=== PATIENT | female | born 1985 | race Hispanic/Latino ===

== ENCOUNTER 2019-07-06 13:02 | Emergency (ER) | payer SELFPAY ==
[2019-07-06 13:11] VITALS: BP 139/87
--- NOTE | 2019-07-06 13:14 | Event Note ---
ED Screening Note Date of service: 07/06/19 Time: 13:09 ED Screening Note: 34 y/o female c/o " My asthma". Has been going on for 3 days. Using Qvar and albuterol. SOB and chest tightness. No wheezing. LMP on BC. No smoke. This initial assessment/diagnostic orders/clinical plan/treatment(s) is/are subject to change based on patients health status, clinical progression and re- assessment by fellow clinical providers in the ED. Further treatment and workup at subsequent clinical providers discretion. Patient/guardian urged not to elope from the ED as their condition may be serious if not clinically assessed and managed. Initial orders include:
--- NOTE | 2019-07-06 14:06 | XRay Report ---
CHEST 2 VIEWS INDICATION / CLINICAL INFORMATION: Chest tightness and shortness of breath. COMPARISON: None available. FINDINGS: SUPPORT DEVICES: None. HEART / MEDIASTINUM: No significant abnormality. LUNGS / PLEURA: No significant pulmonary or pleural abnormality. No pneumothorax. ADDITIONAL FINDINGS: No significant additional findings. IMPRESSION: 1. No acute findings. Signer Name: Darío Corado MD Signed: 07/06/2019 2:01 PM Workstation Name: [id number]
--- NOTE | 2019-07-06 15:06 | Emergency Department Report ---
ED Shortness of Breath HPI - General Chief Complaint: Dyspnea/Respdistress Stated Complaint: TIGHTNESS OF CHEST/SOB Time Seen by Provider: 07/06/19 13:09 Source: patient Mode of arrival: Ambulatory Limitations: No Limitations - History of Present Illness Initial Comments: Patient is 34 years old female with history of asthma. Patient stated that she's been having some shortness of breath and wheezing for the last week. Patient stated that she was using her son breathing machine and he is liquid steroid. Patient denied any fever or chills. No nausea or vomiting. MD Complaint: shortness of breath - Related Data Home Medications Medication Instructions Recorded Confirmed Last Taken Albuterol Sulfate [Ventolin HFA] 2 puff IH Q6H PRN 09/25/16 09/25/16 Unknown Budesoni/Formotero 160-4.5(Nf) 2 puff IH Q12H 09/25/16 09/25/16 09/25/16 [Symbicort 160-4.5 (Nf)] Ferrous Sulfate [Feosol] 325 mg PO QDAY 09/25/16 09/25/16 Unknown valACYclovir [Valtrex] 500 mg PO QDAY 09/25/16 09/25/16 Unknown Allergies Allergy/AdvReac Type Severity Reaction Status Date / Time nitrofurantoin Allergy Rash Verified 08/11/16 13:06 [From Macrobid] nitrofurantoin Allergy Rash Verified 08/11/16 13:06 macrocrystalline [From Macrobid] ED Review of Systems ROS: Stated complaint: TIGHTNESS OF CHEST/SOB Other details as noted in HPI Comment: All other systems reviewed and negative Constitutional: denies: chills, fever Respiratory: shortness of breath, SOB with exertion, SOB at rest, wheezing. denies: cough, orthopnea Cardiovascular: denies: chest pain, palpitations, dyspnea on exertion Gastrointestinal: denies: abdominal pain, nausea, vomiting ED Past Medical Hx - Past Medical History Previous Medical History?: Yes Hx Hypertension: No Hx Congestive Heart Failure: No Hx Diabetes: No Hx Deep Vein Thrombosis: No Hx Renal Disease: No Hx Sickle Cell Disease: No Hx Seizures: No Hx Asthma: Yes (albuteral, symbicort daily) Hx COPD: No Hx HIV: No - Social History Smoking Status: Never Smoker Substance Use Type: None - Medications Home Medications: Home Medications Medication Instructions Recorded Confirmed Last Taken Type Albuterol Sulfate [Ventolin HFA] 2 puff IH Q6H PRN 09/25/16 09/25/16 Unknown History Budesoni/Formotero 160-4.5(Nf) 2 puff IH Q12H 09/25/16 09/25/16 09/25/16 History [Symbicort 160-4.5 (Nf)] Ferrous Sulfate [Feosol] 325 mg PO QDAY 09/25/16 09/25/16 Unknown History valACYclovir [Valtrex] 500 mg PO QDAY 09/25/16 09/25/16 Unknown History ED Physical Exam - General Limitations: No Limitations General appearance: alert, in no apparent distress - Head Head exam: Present: atraumatic, normocephalic, normal inspection - Eye Eye exam: Present: normal appearance, PERRL - ENT ENT exam: Present: normal exam, normal orophraynx, mucous membranes moist - Neck Neck exam: Present: normal inspection, full ROM. Absent: tenderness, meningismus, lymphadenopathy, thyromegaly - Respiratory Respiratory exam: Present: normal lung sounds bilaterally. Absent: respiratory distress, wheezes, rales, rhonchi, stridor, chest wall tenderness, accessory muscle use, decreased breath sounds, prolonged expiratory - Cardiovascular Cardiovascular Exam: Present: regular rate, normal rhythm, normal heart sounds - GI/Abdominal GI/Abdominal exam: Present: soft. Absent: distended, tenderness, guarding, rebound, rigid - Extremities Exam Extremities exam: Present: normal inspection. Absent: pedal edema - Back Exam Back exam: Present: normal inspection, full ROM. Absent: tenderness, CVA tenderness (R) - Neurological Exam Neurological exam: Present: alert, oriented X3, CN II-XII intact ED Course Vital Signs 07/06/19 13:09 Temperature 98.3 F Pulse Rate 76 Respiratory 18 Rate Blood Pressure 139/87 O2 Sat by Pulse 97 Oximetry ED Medical Decision Making - Radiology Data Radiology results: report reviewed Chest x-ray is unremarkable. Critical care attestation.: If time is entered above; I have spent that time in minutes in the direct care of this critically ill patient, excluding procedure time. ED Disposition Clinical Impression: Asthma exacerbation attacks Disposition: TO HOME OR SELFCARE Is pt being admited?: No Condition: Stable Instructions: Asthma (ED) Referrals: PRIMARY CARE, [Primary Care Provider] - 3-5 Days
== END 2019-07-06 15:53 | disposition home or self-care (01) ==
LOC: ED 13:02
DX: J45.901 Unspecified asthma with (acute) exacerbation (principal); Z88.8 Allergy status to other drugs, medicaments and biological substances; Z79.899 Other long term (current) drug therapy
CPT/HCPCS: 71046

== ENCOUNTER 2019-11-09 18:28 | Emergency (ER) | payer OTHER ==
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
[2019-11-09 22:59] LABS: Basophils # (Auto) 0.1 K/mm3 (0.0-0.1); Basophils % (Auto) 0.6 % (0.0-1.8); Eosinophils # (Auto) 0.6 K/mm3 (0.0-0.4); Eosinophils % (Auto) 4.2 % (0.0-4.3); Hematocrit 38.6 % (30.3-42.9); Hemoglobin 12.7 gm/dl (10.1-14.3); Lymphocytes # (Auto) 3.4 K/mm3 (1.2-5.4); Lymphocytes % (Auto) 23.9 % (13.4-35.0); Mean Corpuscular HGB Conc 33 % (30-34); Mean Corpuscular Volume 83 fl (79-97); Monocytes # (Auto) 0.9 K/mm3 (0.0-0.8); Monocytes % (Auto) 6.3 % (0.0-7.3); Platelet Count 321 K/mm3 (140-440); Red Blood Count 4.67 M/mm3 (3.65-5.03); Red Cell Distribution Width 14.4 % (13.2-15.2)
[2019-11-09 23:11] LABS: Bacteria,Urine 1+ /HPF (Negative); Bilirubin,Urine NEG (Negative); Blood,Urine MOD (Negative); Color,Urine Yellow (Yellow); Mucus,Urine 2+ /HPF; Protein,Urine <15 mg/dL mg/dL (Negative); Urobilinogen,Urine < 2.0 mg/dL (<2.0)
[2019-11-09 23:19] LABS: Alanine Aminotransferase 17 units/L (7-56); Albumin 4.2 g/dL (3.9-5); BUN/Creatinine Ratio 17; Blood Urea Nitrogen 12 mg/dL (7-17); Calcium 9.5 mg/dL (8.4-10.2); Hemolysis Index 5
[2019-11-09] MEDS ORDERED: KETOROLAC 30 MG/1 ML INJ IM ONE (23:55)
[2019-11-10] MEDS ORDERED: DEXAMETHASONE 4 MG TAB PO ONE (00:14)
[2019-11-10 02:09] VITALS: BP 138/87
== END 2019-11-10 00:38 | disposition home or self-care (01) ==
LOC: ED 18:28
DX: N39.0 Urinary tract infection, site not specified (principal); M54.41 Lumbago with sciatica, right side; M54.42 Lumbago with sciatica, left side; Z79.899 Other long term (current) drug therapy; Z88.1 Allergy status to other antibiotic agents; Z88.8 Allergy status to other drugs, medicaments and biological substances; J45.909 Unspecified asthma, uncomplicated; V49.49XA Driver injured in collision with other motor vehicles in traffic accident, initial encounter; Y93.89 Activity, other specified; Y92.410 Unspecified street and highway as the place of occurrence of the external cause; Y99.8 Other external cause status
CPT/HCPCS: 36415; 72100; 80053; 81001; 83690; 84703; 85025; 87086; 96372; 99284; J1885; J8540; 87076; 87186

== ENCOUNTER 2020-02-01 07:08 | Emergency (ER) | payer SELFPAY ==
[2020-02-01 08:41] LABS: HCG Qualitative,Urine Negative (Negative)
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
[2020-02-01 09:18] LABS: Bilirubin,Urine NEG (Negative); Blood,Urine SM (Negative); Color,Urine Straw (Yellow); Protein,Urine <15 mg/dL mg/dL (Negative); Urobilinogen,Urine < 2.0 mg/dL (<2.0); WBC,Urine < 1.0 /HPF (0.0-6.0)
[2020-02-01] MEDS ORDERED: HYDROcodone/ACETAMINOPHEN 5-325 MG TAB PO ONE (09:38)
[2020-02-01] MEDS ORDERED: predniSONE 10 MG TAB PO ONE (09:38)
[2020-02-01] MEDS ORDERED: dexAMETHasone 4 MG/ML VIAL IM ONE (09:38)
[2020-02-01 11:03] VITALS: BP 133/90
== END 2020-02-01 11:00 | disposition home or self-care (01) ==
LOC: ED 07:08
DX: M54.40 Lumbago with sciatica, unspecified side (principal); R10.9 Unspecified abdominal pain; J45.909 Unspecified asthma, uncomplicated; Z79.899 Other long term (current) drug therapy; Z88.1 Allergy status to other antibiotic agents
CPT/HCPCS: 81001; 81025; 96372; 99283; J1100; J7512

== ENCOUNTER 2022-01-22 15:04 | Emergency (ER) | payer MEDICAID ==
[2022-01-22 17:54] VITALS: BP 167/81
== END 2022-01-22 18:45 | disposition left against medical advice (07) ==
LOC: ED 15:04
DX: O20.8 Other hemorrhage in early pregnancy (principal); Z3A.08 8 weeks gestation of pregnancy; Z53.21 Procedure and treatment not carried out due to patient leaving prior to being seen by health care provider

== ENCOUNTER 2022-05-18 10:18 | Outpatient (CLI) | payer MEDICAID ==
[2022-05-18 11:20] VITALS: BP 108/59
[2022-05-18] MEDS ORDERED: LACTATED RINGERS 500 ML IV ONE (11:36)
[2022-05-18 14:33] LABS: Bilirubin,Urine NEG (Negative); Blood,Urine NEG (Negative); Color,Urine Yellow (Yellow); Protein,Urine <15 mg/dL mg/dL (Negative); Urobilinogen,Urine < 2.0 mg/dL (<2.0)
[2022-05-18 14:34] LABS: Mucus,Urine FEW /HPF; RBC,Urine < 1.0 /HPF (0.0-6.0); WBC,Urine < 1.0 /HPF (0.0-6.0)
--- NOTE | 2022-05-18 17:40 | Ultrasound Report ---
OB ultrasound INDICATION: Lower abdominal pain FINDINGS: BPD measures 24 weeks 6 days. Head circumference 24 weeks 4 days. Abdominal circumference 2 5 weeks 2 days and femoral length 22 weeks 1 day. Estimated weight 6 61 g. Ultrasound age 24 weeks 2 days. ROMAN measures 4.0 cm. Cephalic presentation placenta grade 0. heart rate 155. Cervix lengt h 3.42 cm. IMPRESSION: Live intrauterine with ultrasound age 24 weeks 2 days and clinical age 23 weeks 5 days. Signer Name: Brett Camara MD Signed: 05/18/2022 5:36 PM Workstation Name: [id number]
== END 2022-05-18 18:02 | disposition home or self-care (01) ==
LOC: APU 10:18 → TRG 10:18
PROVIDERS: ATTEND Obstetrics & Gynecology
DX: O09.892 Supervision of other high risk pregnancies, second trimester (principal); Z3A.26 26 weeks gestation of pregnancy
CPT/HCPCS: 59025; 76805; 81001

== ENCOUNTER 2022-07-25 08:18 | Outpatient (CLI) | payer MEDICAID ==
--- NOTE | 2022-07-25 13:10 | Ultrasound Report ---
LIMITED OBSTETRICAL ULTRASOUND INDICATION: CERVICAL LENGTH COMPARISON: 05/18/2022 FINDINGS: Single intrauterine is again seen in cephalic position. Placenta is not visualize d but is free of the internal cervical os. Cervical length is 3.4 cm with no obvious internal os wide braeden seen. Cardiac activity was documented at 126 bpm. Dating and anatomic evaluation were not perfor med in this limited study. Signer Name: Jose Gil MD Signed: 07/25/2022 1:05 PM Workstation Name: [id number]
[2022-07-25 13:41] LABS: Hemoglobin 9.4 gm/dl (10.1-14.3); Mean Corpuscular HGB Conc 32 % (30-34); Mean Corpuscular Volume 81 fl (79-97); Platelet Count 269 K/mm3 (140-440); Red Blood Count 3.58 M/mm3 (3.65-5.03); Red Cell Distribution Width 15.4 % (13.2-15.2)
[2022-07-25 14:03] LABS: Alanine Aminotransferase 9 units/L (7-56); Uric Acid 4.6 mg/dL (3.5-7.6)
[2022-07-25 14:04] LABS: Bacteria,Urine 1+ /HPF (Negative); Mucus,Urine FEW /HPF
[2022-07-25 14:28] LABS: Color,Urine Yellow (Yellow)
[2022-07-25 15:05] VITALS: BP 111/59
== END 2022-07-25 15:43 | disposition home or self-care (01) ==
LOC: TRG 08:18 → APU 08:19 → TRG 15:43
PROVIDERS: ATTEND Obstetrics & Gynecology
DX: O26.893 Other specified pregnancy related conditions, third trimester (principal); M54.50 Low back pain, unspecified; R11.0 Nausea; Z3A.33 33 weeks gestation of pregnancy
CPT/HCPCS: 36415; 76815; 81001; 82565; 83615; 84450; 84460; 84550; 85027; 87086

== ENCOUNTER 2022-08-14 11:00 | Outpatient (CLI) | payer OTHER, MEDICAID ==
[2022-08-14 11:26] VITALS: BP 137/79
== END 2022-08-14 12:43 | disposition home or self-care (01) ==
LOC: TRG 11:00 → APU 11:01 → TRG 12:43
PROVIDERS: ATTEND Obstetrics & Gynecology Gynecology
DX: Z34.93 Encounter for supervision of normal pregnancy, unspecified, third trimester (principal); Z3A.36 36 weeks gestation of pregnancy
CPT/HCPCS: 59025

== ENCOUNTER 2022-08-25 07:49 | Inpatient (IN) | payer MEDICAID ==
[2022-08-25] MEDS ORDERED: OXYTOCIN DRIP 30,000 MILLIUNITS/500 ML BAG IV ONE (11:51)
[2022-08-25] MEDS ORDERED: LACTATED RINGERS 1,000 ML IV SCH ×2 (12:00→12:15)
[2022-08-25] MEDS ORDERED: BUTORPHANOL 2 MG/1 ML INJ IV PRN (12:02)
[2022-08-25] MEDS ORDERED: NALOXONE 0.4 MG/1 ML INJ IV PRN ×2 (12:02→18:01)
[2022-08-25] MEDS ORDERED: ONDANSETRON 4 MG/2 ML INJ IV PRN (12:02)
[2022-08-25] MEDS ORDERED: OXYTOCIN 10 UNIT/1 ML INJ IM PRN (12:02)
[2022-08-25] MEDS ORDERED: WITCH HAZEL/ GLYCERIN PAD TP PRN (12:06)
--- NOTE | 2022-08-25 12:40 | History and Physical Report ---
History of Present Illness Date of examination: 08/25/22 Date of admission: 08/25/22 07:49 Chief complaint: Presents for scheduled induction of labor per [facility] recommendation for CHTN, AMA, and Maternal Obesity History of present illness: Early entry to care, co-managed with [facility]. course complicated by CHTN, AMA, Maternal obesity, a UTI (treated with Amoxicillin); and a hx of HSV II (taking Valacyclovir suppression). Past History Past Medical History: asthma, hypertension Past Surgical History: no surgical history DINING HOST History: abnormal PAP smear, herpes Family/Genetic History: cancer Social history: no significant social history, single - Obstetrical History Expected Date of Delivery: 09/07/22 Actual Gestation: 38 Week(s) 1 Day(s) : 7 Para: 5 Hx # Term Pregnancies: 5 Spontaneous Abortions: 1 Number of Living Children: 5 #1 Infant Gender: Female year: 2,001 Birthweight: 2.948 kg Method of Delivery: Vaginal Gestational age at delivery: 40 #2 Gender: Male year: 2,[birth year] Birthweight: 3.175 kg Method of Delivery: Vaginal Gestational age at delivery: 40 #3 Infant Gender: Male year: 2,009 Birthweight: 3.175 kg Method of Delivery: Vaginal Gestational age at delivery: 40 #4 Infant Gender: Male year: 2,012 Birthweight: 4.423 kg Method of Delivery: Vaginal Gestational age at delivery: 41 #5 Infant Gender: Female year: 2,016 Birthweight: 3.827 kg Method of Delivery: Vaginal Gestational age at delivery: 38 Medications and Allergies Allergies Allergy/AdvReac Type Severity Reaction Status Date / Time nitrofurantoin Allergy Rash Verified 08/11/16 13:06 [From Macrobid] nitrofurantoin Allergy Rash Verified 08/11/16 13:06 macrocrystalline [From Macrobid] Home Medications Medication Instructions Recorded Confirmed Last Taken Type Albuterol Sulfate [Ventolin HFA] 2 puff IH Q6H PRN 09/25/16 09/25/16 Unknown History Budesoni/Formotero 160-4.5(Nf) 2 puff IH Q12H 09/25/16 09/25/16 09/25/16 History [Symbicort 160-4.5 (Nf)] Ferrous Sulfate [Feosol] 325 mg PO QDAY 09/25/16 09/25/16 Unknown History valACYclovir [Valtrex] 500 mg PO QDAY 09/25/16 09/25/16 Unknown History Cyclobenzaprine [Flexeril] 10 mg PO TID PRN #10 tablet 02/01/20 Unknown Rx Ibuprofen [Motrin] 800 mg PO Q8HR PRN #30 tablet 02/01/20 Unknown Rx predniSONE [Deltasone] 20 mg PO DAILY #5 tablet 02/01/20 Unknown Rx Active Meds: Active Medications Butorphanol Tartrate (Butorphanol 2 Mg/1 Ml Inj) 2 mg IV Q2H PRN PRN Reason: Pain , Severe (7-10) Ephedrine Sulfate (Ephedrine Sulfate 50 Mg/1 Ml Inj) 10 mg IV Q2M PRN PRN Reason: Hypotension Lactated Ringer's (Lactated Ringers) 1,000 mls @ 125 mls/hr IV DIRECT EUSEBIO Oxytocin/Sodium Chloride (Pitocin/Ns 30 Unit/500ml) 30,000 milliunits in 500 mls @ 2 mls/hr IV DIRECT ONE; Protocol Stop: 09/04/22 21:50 Oxytocin/Sodium Chloride (Pitocin/Ns 30 Unit/500ml) 30 units in 500 mls @ 2 mls/hr IV TITR EUSEBIO; Protocol Ampicillin Sodium (Ampicillin/Ns 1 Gm/50 Ml) 1 gm in 50 mls @ 100 mls/hr IV Q4H EUSEBIO; Protocol Ampicillin Sodium (Ampicillin/Ns 2 Gm/100 Ml) 2 gm in 100 mls @ 100 mls/hr IV ONCE ONE; Protocol Stop: 08/25/22 13:59 Lidocaine (Lidocaine (2%) 20 Mg/1 Ml Vial 20 Ml Mdv) 20 ml INFILTRATI ONCE ONE Stop: 08/25/22 13:01 Mineral Oil (Mineral Oil 30 Ml Oral Liqd) 30 ml PO QHS PRN PRN Reason: Constipation Misoprostol (Misoprostol 200 Mcg Tab) 800 mcg AR ONCE PRN PRN Reason: Uterine Bleeding Misoprostol (Misoprostol 25 Mcg Tab) 25 mcg VG ONCE ONE Stop: 08/25/22 13:01 Last Admin: 08/25/22 12:33 Dose: 25 mcg Naloxone HCl (Naloxone 0.4 Mg/1 Ml Inj) 0.1 mg IV Q2MIN PRN PRN Reason: Res Rate </= 8 or 02 SAT < 92% Ondansetron HCl (Ondansetron 4 Mg/2 Ml Inj) 4 mg IV Q8H PRN PRN Reason: Nausea And Vomiting Oxytocin (Oxytocin 10 Unit/1 Ml Inj) 10 unit IM ONCE PRN PRN Reason: Uterine Bleeding Terbutaline Sulfate (Terbutaline 1 Mg/1 Ml Inj) 0.25 mg SUB-Q ONCE PRN PRN Reason: Hyperstimulation/Hypertonicity Witch Karlee/Glycerin (Witch Karlee/ Glycerin Pad) 1 each TP PRN PRN PRN Reason: Hemorrhoids Review of Systems All systems: negative - Vital Signs Vital signs: Vital Signs Pulse Ox 77 L 08/25/22 08:48 Temp Pulse Resp BP Pulse Ox 98.2 F 89 119/67 98 08/25/22 11:46 08/25/22 12:31 08/25/22 11:07 08/25/22 12:31 - Physical Exam Breasts: Positive: normal Cardiovascular: Regular rate Lungs: Positive: Clear to auscultation, Normal air movement Abdomen: Positive: normal appearance, soft, normal bowel sounds Genitourinary (Female): Positive: normal external genitalia, normal perenium Vagina: Positive: normal moisture Uterus: Positive: enlarged Anus/Rectum: Positive: normal perianal skin Extremities: Positive: normal - Obstetrical FHR: category 1 Uterine Contraction Monitor Mode: External Cervical Dilatation: 3 (Vtx; Intact) Cervical Effacement Percentage: 40 station: -3 Uterine Contraction Pattern: Irregular Uterine Tone Measurement Phase: Resting Uterine Contraction Intensity: Mild Results All other labs normal. Assessment and Plan A: IUP @ 38 1/7 Weeks Category I Tracing Chronic Hypertension Advanced Maternal Age Maternal Obesity Asthma GBS Positive P: Admit to L&D Per Routine Orders Cytotec 25mcg Intravaginally x 1 dose GBS Prophylaxis
[2022-08-25] MEDS ORDERED: ePHEDrine SULFATE 50 MG/1 ML INJ IV PRN ×2 (13:00→18:01)
[2022-08-25] MEDS ORDERED: MINERAL OIL 30 ML ORAL LIQD PO PRN (13:00)
[2022-08-25] MEDS ORDERED: AMPICILLIN/NS 2 GM/100 ML 2 GM/100 ML BAG IV ONE (13:00)
[2022-08-25] MEDS ORDERED: LIDOCAINE (2%) 20 MG/1 ML VIAL 20 ML MDV INFILTRATI ONE (13:00)
[2022-08-25] MEDS ORDERED: TERBUTALINE 1 MG/1 ML INJ SUB-Q PRN (13:00)
[2022-08-25] MEDS ORDERED: miSOPROStol 200 MCG TAB PR PRN (13:00)
[2022-08-25] MEDS ORDERED: OXYTOCIN DRIP 30 UNITS/500 ML BAG IV SCH (13:00)
[2022-08-25] MEDS ORDERED: miSOPROStol 25 MCG TAB VG ONE (13:00)
[2022-08-25 13:02] LABS: Hematocrit 28.1 % (30.3-42.9); Hemoglobin 9.1 gm/dl (10.1-14.3); Mean Corpuscular HGB Conc 32 % (30-34); Mean Corpuscular Volume 79 fl (79-97); Platelet Count 231 K/mm3 (140-440); Red Blood Count 3.55 M/mm3 (3.65-5.03); Red Cell Distribution Width 15.4 % (13.2-15.2)
--- NOTE | 2022-08-25 16:39 | Progress Note ---
Assessment and Plan A: IUP @ 38 1/7 Weeks Category I Tracing Chronic Hypertension Advanced Maternal Age Maternal Obesity Asthma GBS Positive P: AROM Continue GBS Prophylaxis Subjective - Subjective Date of service: 08/25/22 Interval history: Early entry to care, co-managed with [facility]. course complicated by CHTN, AMA, Maternal obesity, a UTI (treated with Amoxicillin); and a hx of HSV II (taking Valacyclovir suppression). Patient reports: movement normal, contractions (Requesting Epidural Anesthesia) Objective - Vital Signs Vital Signs: Vital Signs - 12hr 08/25/22 08/25/22 08/25/22 08:48 09:29 09:30 Temperature Pulse Rate 91 H Blood Pressure O2 Sat by Pulse 77 L 91 98 Oximetry O2 Sat by Pulse Oximetry [ Bilateral Throughout] 08/25/22 08/25/22 08/25/22 09:35 09:40 09:45 Temperature Pulse Rate 99 H 98 H 93 H Blood Pressure O2 Sat by Pulse 97 98 98 Oximetry O2 Sat by Pulse Oximetry [ Bilateral Throughout] 08/25/22 08/25/22 08/25/22 09:50 09:55 10:00 Temperature Pulse Rate 93 H 98 H 92 H Blood Pressure O2 Sat by Pulse 97 96 96 Oximetry O2 Sat by Pulse Oximetry [ Bilateral Throughout] 08/25/22 08/25/22 08/25/22 10:05 10:10 10:15 Temperature Pulse Rate 83 89 89 Blood Pressure O2 Sat by Pulse 97 96 98 Oximetry O2 Sat by Pulse Oximetry [ Bilateral Throughout] 08/25/22 08/25/22 08/25/22 10:20 10:25 10:30 Temperature Pulse Rate 80 83 91 H Blood Pressure O2 Sat by Pulse 98 98 97 Oximetry O2 Sat by Pulse Oximetry [ Bilateral Throughout] 08/25/22 08/25/22 08/25/22 10:35 10:40 10:45 Temperature Pulse Rate 86 88 88 Blood Pressure O2 Sat by Pulse 98 98 98 Oximetry O2 Sat by Pulse Oximetry [ Bilateral Throughout] 08/25/22 08/25/22 08/25/22 10:50 10:55 11:00 Temperature Pulse Rate 94 H 91 H 87 Blood Pressure O2 Sat by Pulse 98 98 99 Oximetry O2 Sat by Pulse Oximetry [ Bilateral Throughout] 08/25/22 08/25/22 08/25/22 11:05 11:07 11:16 Temperature Pulse Rate 87 82 82 Blood Pressure 119/67 O2 Sat by Pulse 100 100 Oximetry O2 Sat by Pulse Oximetry [ Bilateral Throughout] 08/25/22 08/25/22 08/25/22 11:21 11:26 11:31 Temperature Pulse Rate 85 86 89 Blood Pressure O2 Sat by Pulse 99 98 98 Oximetry O2 Sat by Pulse Oximetry [ Bilateral Throughout] 08/25/22 08/25/22 08/25/22 11:36 11:38 11:41 Temperature Pulse Rate 82 85 Blood Pressure O2 Sat by Pulse 98 97 Oximetry O2 Sat by Pulse 100 Oximetry [ Bilateral Throughout] 08/25/22 08/25/22 08/25/22 11:46 11:51 11:56 Temperature 98.2 F Pulse Rate 91 H 90 87 Blood Pressure O2 Sat by Pulse 97 97 98 Oximetry O2 Sat by Pulse Oximetry [ Bilateral Throughout] 08/25/22 08/25/22 08/25/22 12:01 12:06 12:11 Temperature Pulse Rate 85 87 100 H Blood Pressure O2 Sat by Pulse 98 98 97 Oximetry O2 Sat by Pulse Oximetry [ Bilateral Throughout] 08/25/22 08/25/22 08/25/22 12:16 12:21 12:26 Temperature Pulse Rate 83 85 87 Blood Pressure O2 Sat by Pulse 97 98 97 Oximetry O2 Sat by Pulse Oximetry [ Bilateral Throughout] 08/25/22 08/25/22 08/25/22 12:31 12:36 12:41 Temperature Pulse Rate 89 84 94 H Blood Pressure O2 Sat by Pulse 98 98 96 Oximetry O2 Sat by Pulse Oximetry [ Bilateral Throughout] 08/25/22 08/25/22 08/25/22 12:45 12:51 12:56 Temperature Pulse Rate 90 86 81 Blood Pressure O2 Sat by Pulse 97 97 97 Oximetry O2 Sat by Pulse Oximetry [ Bilateral Throughout] 08/25/22 08/25/22 08/25/22 13:01 13:06 13:11 Temperature Pulse Rate 86 81 81 Blood Pressure O2 Sat by Pulse 98 97 98 Oximetry O2 Sat by Pulse Oximetry [ Bilateral Throughout] 08/25/22 08/25/22 08/25/22 13:16 13:21 13:26 Temperature Pulse Rate 82 85 87 Blood Pressure O2 Sat by Pulse 98 99 99 Oximetry O2 Sat by Pulse Oximetry [ Bilateral Throughout] 08/25/22 08/25/22 08/25/22 13:31 13:40 13:45 Temperature Pulse Rate 81 83 78 Blood Pressure O2 Sat by Pulse 99 83 L 98 Oximetry O2 Sat by Pulse Oximetry [ Bilateral Throughout] 08/25/22 08/25/22 08/25/22 13:50 13:55 14:00 Temperature Pulse Rate 70 86 80 Blood Pressure O2 Sat by Pulse 98 98 97 Oximetry O2 Sat by Pulse Oximetry [ Bilateral Throughout] 08/25/22 08/25/22 08/25/22 14:05 14:10 14:15 Temperature Pulse Rate 80 90 90 Blood Pressure O2 Sat by Pulse 98 97 98 Oximetry O2 Sat by Pulse Oximetry [ Bilateral Throughout] 08/25/22 08/25/22 08/25/22 14:20 14:25 14:30 Temperature Pulse Rate 87 86 84 Blood Pressure O2 Sat by Pulse 99 99 98 Oximetry O2 Sat by Pulse Oximetry [ Bilateral Throughout] 08/25/22 08/25/22 08/25/22 14:35 14:40 14:45 Temperature Pulse Rate 85 87 84 Blood Pressure O2 Sat by Pulse 98 99 98 Oximetry O2 Sat by Pulse Oximetry [ Bilateral Throughout] 08/25/22 08/25/22 08/25/22 14:50 14:55 15:00 Temperature Pulse Rate 82 90 77 Blood Pressure O2 Sat by Pulse 98 98 99 Oximetry O2 Sat by Pulse Oximetry [ Bilateral Throughout] 08/25/22 08/25/22 08/25/22 15:05 15:10 15:16 Temperature Pulse Rate 84 95 H 85 Blood Pressure O2 Sat by Pulse 99 99 98 Oximetry O2 Sat by Pulse Oximetry [ Bilateral Throughout] 08/25/22 08/25/22 08/25/22 15:21 15:26 15:30 Temperature Pulse Rate 85 84 87 Blood Pressure O2 Sat by Pulse 97 98 100 Oximetry O2 Sat by Pulse Oximetry [ Bilateral Throughout] 08/25/22 08/25/22 08/25/22 15:31 15:36 15:41 Temperature Pulse Rate 92 H 77 83 Blood Pressure O2 Sat by Pulse 91 98 98 Oximetry O2 Sat by Pulse Oximetry [ Bilateral Throughout] 08/25/22 08/25/22 08/25/22 15:46 15:51 15:56 Temperature Pulse Rate 84 82 86 Blood Pressure O2 Sat by Pulse 99 98 98 Oximetry O2 Sat by Pulse Oximetry [ Bilateral Throughout] 08/25/22 08/25/22 08/25/22 16:01 16:06 16:11 Temperature Pulse Rate 85 86 89 Blood Pressure O2 Sat by Pulse 98 98 99 Oximetry O2 Sat by Pulse Oximetry [ Bilateral Throughout] 08/25/22 08/25/22 08/25/22 16:16 16:21 16:26 Temperature Pulse Rate 85 88 90 Blood Pressure O2 Sat by Pulse 97 97 97 Oximetry O2 Sat by Pulse Oximetry [ Bilateral Throughout] 08/25/22 08/25/22 16:31 16:36 Temperature Pulse Rate 85 86 Blood Pressure O2 Sat by Pulse 99 98 Oximetry O2 Sat by Pulse Oximetry [ Bilateral Throughout] - Exam Breasts: normal Cardiovascular: Regular rate Lungs: Normal air movement Abdomen: Present: normal appearance, soft Uterus: Present: normal, firm, fundal height above umbilicus FHR: category 1 Uterine Contraction Monitor Mode: External Cervical Dilatation: 4 (Copious amount of clear fluid upon AROM at 1635) Cervical Effacement Percentage: 70 station: -1 Uterine Contraction Frequency (min): 1 Uterine Contraction Pattern: Regular Uterine Tone Measurement Phase: Resting Uterine Contraction Intensity: Moderate Extremities: normal - Labs Labs: Abnormal Labs 08/25/22 12:16 WBC 11.2 H RBC 3.55 L Hgb 9.1 L Hct 28.1 L MCH 26 L RDW 15.4 H Laboratory Results - last 24 hr 08/25/22 08/25/22 08/25/22 12:16 12:16 12:40 WBC 11.2 H RBC 3.55 L Hgb 9.1 L Hct 28.1 L MCV 79 MCH 26 L MCHC 32 RDW 15.4 H Plt Count 231 SARS-CoV-2 (PCR) Negative Blood Type O POSITIVE Antibody Screen Negative
[2022-08-25] MEDS ORDERED: AMPICILLIN/NS 1 GM/50 ML 1 GM/50 ML BAG IV SCH (17:00)
--- NOTE | 2022-08-25 18:05 | Anesthesia Consultation ---
Anesthesia Consult and Med Hx Date of service: 08/25/22 - Airway Anesthetic Teeth Evaluation: Poor ROM Head & Neck: Adequate Mental/Hyoid Distance: Adequate Mallampati Class: Class II Intubation Access Assessment: Probably Good - Pulmonary Exam CTA: Yes - Cardiac Exam Cardiac Exam: RRR - Pre-Operative Health Status ASA Pre-Surgery Classification: ASA3 Proposed Anesthetic Plan: Epidural - Pulmonary Hx Asthma: Yes (albuteral, symbicort daily) COPD: No Hx Pneumonia: No - Cardiovascular System Hx Hypertension: Yes (CHTN) - Central Nervous System Hx Seizures: No Hx Psychiatric Problems: No - Gastrointestinal Hx Gastroesophageal Reflux Disease: Yes - Endocrine Hx Renal Disease: No Hx End Stage Renal Disease: No Hx Hypothyroidism: No Hx Hyperthyroidism: No - Hematic Hx Anemia: No Hx Sickle Cell Disease: No - Other Systems Hx Alcohol Use: No Hx Substance Use: No Hx Obesity: Yes
--- NOTE | 2022-08-25 18:08 | Progress Note ---
Labor Epidural - Labor Epidural Start Time: 17:47 Stop Time: 17:52 Performed by:: ALYSHA MON Procedure: Patient is requesting epidural for labor pain. H&P and labs reviewed. Procedure explained, questions answered, consent obtained. Patient placed in sitting position with monitors applied. Timeout performed immediately before start of procedure. Prep/drape in usual sterile fashion. Skin localized 3 mL 1% lidocaine at L[3]-L[4] interspace X 1 ATTEMPT. 17-gauge Touhy epidural needle advanced to TATIANA with saline at [8] cm. No blood/CSF noted via epidural needle. Epidural catheter advanced to [12] cm. Negative aspiration for blood and CSF via catheter, negative response to test dose 2 ml 1.5% lidocaine w/ Epi. Sterile dressing applied followed by tape reinforcement. Patient tolerated procedure well. No immediate complications noted.
[2022-08-25] MEDS ORDERED: fentaNYL-BUPIV 2 MCG/ML-0.125% 200 MCG/100 ML BAG EPIDURAL SCH (19:00)
[2022-08-25] MEDS ORDERED: HYDROcodone/ACETAMINOPHEN 5-325 MG TAB PO PRN (19:22)
[2022-08-25] MEDS ORDERED: LANOLIN/ZINC/DIMETHICONE (LANSINOH) 7 GM TP PRN (19:22)
[2022-08-25] MEDS ORDERED: diphenhydrAMINE 25 MG CAP PO PRN (19:22)
[2022-08-25] MEDS ORDERED: PROMETHAZINE 25 MG TAB PO PRN (19:22)
--- NOTE | 2022-08-25 19:30 | Procedure Note ---
OB Delivery Note - Delivery Date of Delivery: 08/25/22 (1905) Surgeon: AARON MUNSON Estimated blood loss: 200cc - Vaginal Delivery presentation: vertex Delivery position: OA Delivery induction: misoprostol Delivery augmentation: rupture of membranes Delivery monitor: external FHT, external uterine Route of delivery: Delivery placenta: spontaneous Delivery cord: 3 umbilical vessels Episiotomy: none Delivery laceration: none Anesthesia: epidural Delivery comments: of a live 8'4 female over a intact perineum under epidural anesthesia with Apgars of 9 ad 9 at 1906 on 08/25/2022. directly to maternal abd/chest, skin to skin contact. Spontaneous delivery of placenta complete and intact with Car[place] side presenting at 1910. Fundus is firm and midline located 4 below the U. Lochia is scant. Delayed cord clamping and cutting; Cord cut by the Father of the Baby. Cord blood collected; Placenta discarded. GBS prophylaxis x 2. - A at 1 minute: 9 at 5 minutes: 9 Infant Gender: Female (8'4)
[2022-08-25] MEDS: IBUPROFEN 800 MG TAB PO SCH (22:01)
--- NOTE | 2022-08-26 05:38 | Post Anesthesia Evaluation ---
- Post Anesthesia Evaluation Patient Participated: Yes Airway Patent: Yes Stable Respiratory Function: Yes Nausea/Vomiting: No Temp > 96.8F: Yes Pain Manageable: Yes Adequeate Hydration: Yes Anesthesia Complications: No Block Receding Appropriately: Yes Patient on Ventilator: No
[2022-08-26] MEDS: IBUPROFEN 800 MG TAB PO SCH ×4 (06:42→23:07)
--- NOTE | 2022-08-26 08:46 | Progress Note ---
Assessment and Plan A: PPD1 cramping with Breast Feeding Stable P: Continue PP care per unit protocol pain management Anticipate D/C home 08/27 Subjective - Subjective Date of service: 08/26/22 (08) Principal diagnosis: Patient reports: appetite normal, voiding normally, pain poorly controlled (states cramping with BFeeding), ambulating normally : doing well, nursing well Objective - Vital Signs Latest vital signs: Vital Signs Temp Pulse Resp BP BP Pulse Ox Pulse Ox 08/26/22 05:16 97.6 F 73 20 123/76 97 08/26/22 01:01 98.2 F 87 20 128/76 94 08/25/22 21:00 97.9 F 77 16 117/70 95 95 08/25/22 20:25 82 95 08/25/22 20:20 83 93 08/25/22 20:17 78 122/71 08/25/22 20:15 75 93 08/25/22 20:10 77 93 08/25/22 20:05 83 93 08/25/22 20:02 81 121/62 08/25/22 20:00 82 93 08/25/22 19:55 88 93 08/25/22 19:50 85 94 08/25/22 19:48 84 94 08/25/22 19:47 83 114/69 08/25/22 19:45 85 94 08/25/22 19:41 87 94 08/25/22 19:40 86 94 08/25/22 19:36 94 H 95 08/25/22 19:32 86 108/55 08/25/22 19:30 90 94 08/25/22 19:25 93 H 94 08/25/22 19:20 91 H 95 08/25/22 19:18 97 H 94 08/25/22 19:17 91 H 117/57 08/25/22 19:15 93 H 95 08/25/22 19:10 95 H 96 08/25/22 19:05 114 H 97 08/25/22 19:04 121 H 137/97 08/25/22 19:00 115 H 98 08/25/22 18:56 117 H 97 08/25/22 18:50 97 H 98 08/25/22 18:47 95 H 114/65 08/25/22 18:46 92 H 98 08/25/22 18:41 100 H 98 08/25/22 18:35 92 H 95 08/25/22 18:32 86 120/66 08/25/22 18:31 101 H 94 08/25/22 18:26 97 H 96 08/25/22 18:20 98 H 96 08/25/22 18:17 86 116/57 08/25/22 18:16 94 H 96 08/25/22 18:11 89 96 08/25/22 18:06 87 95 08/25/22 18:02 93 H 135/77 08/25/22 18:01 87 97 08/25/22 18:00 95 H 148/71 08/25/22 17:58 93 H 150/74 08/25/22 17:56 88 154/76 97 08/25/22 17:54 93 H 135/86 08/25/22 17:52 83 156/92 08/25/22 17:51 89 98 08/25/22 17:50 88 144/93 08/25/22 17:48 100 H 142/85 08/25/22 17:46 94 H 147/105 98 08/25/22 17:44 96 H 133/85 08/25/22 17:41 98 H 98 08/25/22 17:36 100 H 98 08/25/22 17:31 91 H 98 08/25/22 17:26 99 H 98 08/25/22 17:21 92 H 99 08/25/22 17:16 90 98 08/25/22 17:11 93 H 98 08/25/22 17:06 94 H 97 08/25/22 17:01 89 98 08/25/22 16:56 92 H 97 08/25/22 16:51 86 97 08/25/22 16:46 86 98 08/25/22 16:41 85 97 08/25/22 16:36 86 98 08/25/22 16:31 85 99 08/25/22 16:26 90 97 08/25/22 16:21 88 97 08/25/22 16:16 85 97 08/25/22 16:11 89 99 08/25/22 16:06 86 98 08/25/22 16:01 85 98 08/25/22 15:56 86 98 08/25/22 15:51 82 98 08/25/22 15:46 84 99 08/25/22 15:41 83 98 08/25/22 15:36 77 98 08/25/22 15:31 92 H 91 08/25/22 15:30 87 100 08/25/22 15:26 84 98 08/25/22 15:21 85 97 08/25/22 15:16 85 98 08/25/22 15:10 95 H 99 08/25/22 15:05 84 99 08/25/22 15:00 77 99 08/25/22 14:55 90 98 08/25/22 14:50 82 98 08/25/22 14:45 84 98 08/25/22 14:40 87 99 08/25/22 14:35 85 98 08/25/22 14:30 84 98 08/25/22 14:25 86 99 08/25/22 14:20 87 99 08/25/22 14:15 90 98 08/25/22 14:10 90 97 08/25/22 14:05 80 98 08/25/22 14:00 80 97 08/25/22 13:55 86 98 08/25/22 13:50 70 98 08/25/22 13:45 78 98 08/25/22 13:40 83 83 L 08/25/22 13:31 81 99 08/25/22 13:26 87 99 08/25/22 13:21 85 99 08/25/22 13:16 82 98 08/25/22 13:11 81 98 08/25/22 13:06 81 97 08/25/22 13:01 86 98 08/25/22 12:56 81 97 08/25/22 12:51 86 97 08/25/22 12:45 90 97 08/25/22 12:41 94 H 96 08/25/22 12:36 84 98 08/25/22 12:31 89 98 08/25/22 12:26 87 97 08/25/22 12:21 85 98 08/25/22 12:16 83 97 08/25/22 12:11 100 H 97 08/25/22 12:06 87 98 08/25/22 12:01 85 98 08/25/22 11:56 87 98 08/25/22 11:51 90 97 08/25/22 11:46 98.2 F 91 H 97 08/25/22 11:41 85 97 08/25/22 11:38 100 08/25/22 11:36 82 98 08/25/22 11:31 89 98 08/25/22 11:26 86 98 08/25/22 11:21 85 99 08/25/22 11:16 82 100 08/25/22 11:07 82 119/67 08/25/22 11:05 87 100 08/25/22 11:00 87 99 08/25/22 10:55 91 H 98 08/25/22 10:50 94 H 98 08/25/22 10:45 88 98 08/25/22 10:40 88 98 08/25/22 10:35 86 98 08/25/22 10:30 91 H 97 08/25/22 10:25 83 98 08/25/22 10:20 80 98 08/25/22 10:15 89 98 08/25/22 10:10 89 96 08/25/22 10:05 83 97 08/25/22 10:00 92 H 96 08/25/22 09:55 98 H 96 08/25/22 09:50 93 H 97 08/25/22 09:45 93 H 98 08/25/22 09:40 98 H 98 08/25/22 09:35 99 H 97 08/25/22 09:30 91 H 98 08/25/22 09:29 91 08/25/22 08:48 77 L Intake and Output 08/25/22 08/26/22 08/26/22 23:59 07:59 15:59 Intake Total 240 Output Total 300 400 Balance -60 -400 Intake: Oral 240 Output: Urine 300 400 Void 300 400 Other: Total, Intake Amount 240 Total, Output Amount 300 400 # Voids Void 1 2 1 Estimated Blood Loss 200 - Exam Breasts: Present: normal Cardiovascular: Present: Regular rate Lungs: Present: Clear to auscultation, Normal air movement Abdomen: Present: normal appearance, soft Uterus: Present: firm, fundal height below umbilicus Extremities: Present: normal Deep Tendon Reflex Grade: Normal +2 - Labs Labs: Abnormal lab results 08/25/22 Range/Units 12:16 WBC 11.2 H (4.5-11.0) K/mm3 RBC 3.55 L (3.65-5.03) M/mm3 Hgb 9.1 L (10.1-14.3) gm/dl Hct 28.1 L (30.3-42.9) % MCH 26 L (28-32) pg RDW 15.4 H (13.2-15.2) %
--- NOTE | 2022-08-26 08:51 | Discharge Summary ---
Providers - Providers Date of Admission: 08/25/22 07:49 Date of discharge: 08/27/22 Attending physician: DARLING LATHAM MD Primary care physician: DARLING LATHAM MD Hospitalization Reason for admission: active labor Delivery: Episiotomy: none Laceration: none Other procedures: none complications: none Discharge diagnosis: IUP at term delivered [place] baby: female Condition at discharge: Good Disposition: 01 HOME / SELF CARE / HOMELESS Plan - Discharge Medications Prescriptions: Ibuprofen [Motrin 800 MG tab] 800 mg PO Q8HR #30 tablet - Provider Discharge Summary Activity: no sex for 6 weeks, no heavy lifting 4 weeks, no strenuous exercise Diet: routine Instructions: routine Additional instructions: [] Smoking cessation referral if applicable(refer to patient education folder for contact #) [] Refer to [facility] Booklet Call your doctor immediately for: * Fever > 100.5 * Heavy vaginal bleeding ( >1 pad per hour) * Severe persistent headache * Shortness of breath * Reddened, hot, painful area to leg or breast * Drainage or odor from incision. * - Follow up plan Follow up: DARLING LATHAM MD [Primary Care Provider] - 6 Weeks (Make an appointment with [facility] for 6 weeks Post check)
[2022-08-26] MEDS ORDERED: PRENATAL VIT27-FE FUMARATE-FOLIC ACID VIT TAB PO SCH (10:00)
[2022-08-26 12:39] LABS: Hematocrit 27.5 % (30.3-42.9); Hemoglobin 8.9 gm/dl (10.1-14.3)
[2022-08-27] MEDS: IBUPROFEN 800 MG TAB PO SCH (05:29)
[2022-08-27 11:32] VITALS: BP 136/93
== END 2022-08-27 11:20 | disposition home or self-care (01) | DRG 774 ==
LOC: LD 07:49 → OB 21:07
PROVIDERS: ADMIT Obstetrics & Gynecology Gynecology; ATTEND Obstetrics & Gynecology Gynecology
PROC: 3E0P7VZ Introduction of Hormone into Female Reproductive, Via Natural or Artificial Opening (ICD-10-PCS; principal; 2022-08-25)
PROC: 10E0XZZ Delivery of Products of Conception, External Approach (ICD-10-PCS; 2022-08-25)
PROC: 3E0R3BZ Introduction of Anesthetic Agent into Spinal Canal, Percutaneous Approach (ICD-10-PCS; 2022-08-25)
PROC: 00HU33Z Insertion of Infusion Device into Spinal Canal, Percutaneous Approach (ICD-10-PCS; 2022-08-25)
DX: O10.92 Unspecified pre-existing hypertension complicating childbirth (principal); O99.214 Obesity complicating childbirth; Z3A.38 38 weeks gestation of pregnancy; Z37.0 Single live birth; Z20.822 Contact with and (suspected) exposure to COVID-19; O98.32 Other infections with a predominantly sexual mode of transmission complicating childbirth; A60.00 Herpesviral infection of urogenital system, unspecified; O99.52 Diseases of the respiratory system complicating childbirth; J45.909 Unspecified asthma, uncomplicated; O99.824 Streptococcus B carrier state complicating childbirth; O99.62 Diseases of the digestive system complicating childbirth; K21.9 Gastro-esophageal reflux disease without esophagitis; Z88.8 Allergy status to other drugs, medicaments and biological substances
CPT/HCPCS: 36415; 85014; 85018; 85027; 86850; 86900; 86901; G0378; J3490; J0290; J7120; U0003